=== PATIENT | female | born 1990 | race Caucasian/White ===

== ENCOUNTER 2016-09-04 12:20 | Emergency (ER) | payer MEDICAID ==
[~2016-09-04] VITALS: Ht 160 cm; Wt 77.0 kg
[~2016-09-04 12:20] MED LIST: ALBU8.5H3 INH; AZIT250T94 PO; BENZ100C70 PO; D-ME473S18 PO; DOXY100T20 PO; PRED20TA PO; PRED50TA PO; PREN1TAB33 BU; [UNRECOGNIZED DRUG - CODE] IJ
[2016-09-04 12:47] VITALS: Ht 160 cm; Wt 77.0 kg
[2016-09-04] MEDS ORDERED: METHYLPREDNISOLONE 125 MG INJ IM STA (16:09)
[2016-09-04] MEDS ORDERED: ALBUTEROL 0.5% (NEB) 2.5 MG/0.5 ML AMP INH STA ×2 (16:09→18:14)
--- NOTE | 2016-09-04 16:49 | RADRPT ---
PROCEDURE: XR Chest. CLINICAL INDICATION: Asthma exacerbation. TECHNIQUE: Single frontal view of the chest was obtained COMPARISON: No. FINDINGS: The heart is normal in size. The left-sided aorta is normal. The trachea and hilar structures are normal. The lungs are clear. The diaphragms are flattened. No pleural effusion is noted. The bon y elements are normal. No changes noted compared to the prior study. No acute infiltrate is identif ied. IMPRESSION: 1. Stable chest x-ray with no evidence of active cardiopulmonary disease. 2. Mildly hyperinflation which is unchanged. RPTAT:AAJJ Physician Renetta Date Time Electronically viewed and signed by Pritesh Chanel Physician on 09/04/2016 16:49 KRISTAL/
[2016-09-04] MEDS ORDERED: PRED20TA PO (16:50)
[2016-09-04] MEDS ORDERED: ALBU8.5H3 INH (16:51)
--- NOTE | 2016-09-04 16:59 | ERD ---
ER Documentation Chief Complaint Date/Time DATE: 09/04/16 TIME: 16:51 Chief Complaint asthma exacerabtion HPI Patient is a 26-year-old female with past medical history of asthma who presents to the emergency department with shortness of breathing and wheezing. She states that her symptoms started approximately 12 PM today. Patient states she tried taking her albuterol inhaler x1 with minimal relief of symptoms. She states that she's had a dry cough for 3 days. Patient also reports some rhinorrhea. Patient denies any fever, chills, ear pain, throat pain, nausea, vomiting, abdominal pain, loss of consciousness. No recent travel. No sick contacts. ROS All systems reviewed and are negative except as per history of present illness. Medications Home Meds Active Scripts Albuterol Sulfate* (Proair HFA*) 8.5 Gm Hfa.aer.ad, 2 PUFF INH Q4H Y for WHEEZING AND SOB, #1 INHALER Prov:SHERYL MCDERMOTT PA-C 09/04/16 Prednisone* (Prednisone*) 20 Mg Tab, 40 MG PO DAILY for 4 Days, TAB Prov:SHERYL MCDERMOTT PA-C 09/04/16 Dextromethorphan Hb-Promethazine Hcl (Promethazine DM Syrup) 473 Ml Syrup, 1.25 ML PO Q6H, #4 OZ Prov:SONG JONES PA-C 07/14/16 Benzonatate* (Tessalon Perle*) 100 Mg Capsule, 100 MG PO Q8H Y for COUGH for 14 Days, #14 CAP Prov:SONG JONES PA-C 07/14/16 Albuterol Sulfate* (Proair HFA*) 8.5 Gm Hfa.aer.ad, 2 PUFF INH Q4, #1 INHALER Prov:NEFTALY CASTELLON PA-C 07/02/16 Prednisone* (Prednisone*) 50 Mg Tablet, 50 MG PO DAILY, #5 TAB Prov:NEFTALY CASTELLON PA-C 07/02/16 Azithromycin* (Zithromax*) 250 Mg Tablet, 250 MG PO .ZPACK DIRECTED, #6 TAB TAKE 500 MG (2 TABS) THE FIRST DAY THEN 250 MG (1 TAB) DAYS 2-5 Prov:NEFTALY CASTELLON PA-C 07/02/16 Doxycycline Hyclate* (Doxycycline Hyclate*) 100 Mg Tablet.dr, 100 MG PO BID for 10 Days, TAB Prov:RICHARD DAVIS PA-C 06/22/16 Albuterol Sulfate* (Proair HFA*) 8.5 Gm Hfa.aer.ad, 2 PUFF INH Q4, #1 INHALER Prov:RICHARD DAVIS PA-C 06/22/16 Prednisone* (Prednisone*) 20 Mg Tab, 40 MG PO DAILY for 4 Days, TAB Prov:RICHARD DAVIS PA-C 06/22/16 Reported Medications Folic Acid* (Folic Acid* ()) 50 Mcg/Ml Soln, 50 MCG IJ DAILY 07/11/13 Vit/Fe Fumarate/Fa ( Tablet) 1 Tab Tablet, 1 TAB BU DAILY 07/11/13 Allergies Allergies: Coded Allergies: No Known Drug Allergies (Verified Allergy, Unknown, 07/02/16) PMhx/Soc History of Surgery: No Anesthesia Reaction: No Hx Neurological Disorder: No Hx Respiratory Disorders: Yes (ASTHMA, BRONCHITIS) Hx Cardiac Disorders: No Hx Psychiatric Problems: No Hx Miscellaneous Medical Probl: No Hx Alcohol Use: No Hx Substance Use: No Hx Tobacco Use: No FmHx Family History: No diabetes Physical Exam Vitals Vital Signs Date Time Temp Pulse Resp B/P Pulse Ox O2 Delivery O2 Flow Rate FiO2 09/04/16 18:59 97.7 122 20 122/73 98 09/04/16 18:20 110 20 92 21 09/04/16 16:33 79 20 95 21 09/04/16 12:47 97.7 112 20 125/73 95 Physical Exam GENERAL: Well-developed, well-nourished female. Appears in no acute respiratory distress. No abdominal retractions, no nasal flaring. HEAD: Normocephalic, atraumatic. No deformities or ecchymosis. EYE: Pupils equal, round, and reactive to light. EOMs intact. No conjunctival erythema. No scleral icterus. No eye discharge. ENT: External ear without any masses or tenderness. Auditory canals clear bilaterally. TM visualized bilaterally, non-erythematous, non-bulging. Nasal mucosa pink with no discharge. Oropharynx is pink without any tonsillar erythema or exudates. No uvula deviation. No kissing tonsils. NECK: Supple. No lymphadenopathy or thyromegaly. No meningismus. LUNG: Bilateral lobe wheezing auscultated. HEART: Regular rate and rhythm. No murmurs, rubs or gallops. BACK: No midline tenderness. EXTREMITIES: Equal pulses bilaterally. No peripheral clubbing, cyanosis or edema. No unilateral leg swelling. NEUROLOGIC: Alert and oriented to person, place and time. Moving all four extremities. 5/5 strength in all extremities. Normal speech. Steady gait. SKIN: Normal color. Warm and dry. No rashes or lesions. Results 24 hrs Current Medications Medications (Trade) Dose Ordered Sig/Angelo Route PRN Reason Start Time Stop Time Status Last Admin Dose Admin Albuterol (Proventil 0.5% (Neb)) 10 mg ONCE STAT INH 09/04/16 16:09 09/04/16 16:11 DC 09/04/16 16:32 Methylprednisolone Sodium Succinate (Solu-Medrol) 125 mg ONCE STAT IM 09/04/16 16:09 09/04/16 16:11 DC 09/04/16 16:15 Ipratropium [place] (Atrovent 0.02% (Neb)) 0.5 mg ONCE STAT NEB 09/04/16 18:14 09/04/16 18:16 DC 09/04/16 18:20 Albuterol (Proventil 0.5% (Neb)) 10 mg ONCE STAT INH 09/04/16 18:14 09/04/16 18:16 DC 09/04/16 18:20 Ipratropium [place] (Atrovent 0.02% (Neb)) 0.5 mg STK-MED ONCE .ROUTE 09/04/16 18:16 09/04/16 18:17 DC Procedures/MDM ED COURSE: The patient was stable throughout ED course. I kept the patient and/or family informed of laboratory and diagnostic imaging results throughout the ED course. DIAGNOSTIC IMAGING: Read by radiologist. DIAGNOSTIC IMAGING REPORT Patient: FITO GUERRIER : 1990 Age: 26 Sex: F MR #: [id number] DOS: 09/04/16 1609 Ordering MD: SHERYL MCDERMOTT PA-C Location: [facility] Room/Bed: PROCEDURE: XR Chest. CLINICAL INDICATION: Asthma exacerbation. TECHNIQUE: Single frontal view of the chest was obtained COMPARISON: No. FINDINGS: The heart is normal in size. The left-sided aorta is normal. The trachea and hilar structures are normal. The lungs are clear. The diaphragms are flattened. No pleural effusion is noted. The bony elements are normal. No changes noted compared to the prior study. No acute infiltrate is identified. IMPRESSION: 1. Stable chest x-ray with no evidence of active cardiopulmonary disease. 2. Mildly hyperinflation which is unchanged. RPTAT:AAJJ Pritesh Chanel Physician Date Time Electronically viewed and signed by Pritesh Chanel Physician on 09/04/2016 16:49 JM/ CC: SHERYL MCDERMOTT PA-C MEDICATIONS GIVEN: 2 Albuterol breathing treatment 1 hour. Solu-Medrol IM. Patient tolerated medication well with no adverse reactions. MEDICAL DECISION MAKING: This 26-year-old female who presents with SOB and wheezing x 5 hours. Vital signs were reviewed. Patient was afebrile. Patient was not hypoxic, O2 sat at initial presentation was 95%. ENT exam was normal. Exam revealed bilateral lobe wheezing. Patient was given a 1 hour albuterol breathing treatment here in the emergency department. Upon my repeat examination, wheezing was continued to be noted in bilateral lobes. I offered the patient another 1 hr breathing treatment, initially she declined. After speaking nursing staff prior to discharge, she stated that she wished to have another breathing treatment. Patient was given a second 1 hr breathing treatment of albuterol and ipratropium. Upon my 2nd reexamination, the patient's O2 sat was noted to be 98% . She reported feeling much better and wished to go home. Breaths were noted to be improved. Chest X-ray was unremarkable. Given these findings, the patients presentation is most consistent with acute asthma exacerbation likely of viral etiology. I have a much lower clinical concern for bacterial infections including pneumonia, meningitis, sinusitis, otitis externa, acute otitis media, strep pharyngitis, epiglottitis or peritonsillar abscess. PRESCRIPTIONS: Prednisone, albuterol inhaler DISCHARGE: At this time, patient is stable for discharge and outpatient management. Supportive therapies such as OTC throat lozenges, salt water gurgles, popsicles and jello discussed. I have instructed the patient to follow-up with his/her primary care physician in 1-2 days. I have instructed the patient to promptly return to the ER for any new or worsening symptoms including increased pain, swelling, fever, nausea, vomiting, weakness, difficulty breathing or LOC. The patient and/or family expressed understanding of and agreement with this plan. All questions were answered. Home care instructions were provided. Departure Diagnosis: Primary Impression: Asthma with acute exacerbation Asthma severity: unspecified severity Qualified Code: J45.901 - Asthma with acute exacerbation, unspecified asthma severity Condition: Stable Patient Instructions: Asthma, Acute (Adult) Referrals: [facility] YOU HAVE RECEIVED A MEDICAL SCREENING EXAM AND THE RESULTS INDICATE THAT YOU DO NOT HAVE A CONDITION THAT REQUIRES URGENT TREATMENT IN THE EMERGENCY DEPARTMENT. FURTHER EVALUATION AND TREATMENT OF YOUR CONDITION CAN WAIT UNTIL YOU ARE SEEN IN YOUR DOCTORS OFFICE WITHIN THE NEXT 1-2 DAYS. IT IS YOUR RESPONSIBILITY TO MAKE AN APPOINTMENT FOR [facility]. IF YOU HAVE A PRIMARY DOCTOR --you should call your primary doctor and schedule an appointment IF YOU DO NOT HAVE A PRIMARY DOCTOR YOU CAN CALL OUR PHYSICIAN REFERRAL HOTLINE AT IF YOU CAN NOT AFFORD TO SEE A PHYSICIAN YOU CAN CHOSE FROM THE FOLLOWING [facility] [address] [facility]. [facility] [address] [facility]. [facility] [address] [facility]. [facility] [address] [facility] [facility] [address] [facility]. [facility]. [address] [facility]. [facility] YOU HAVE RECEIVED A MEDICAL SCREENING EXAM AND THE RESULTS INDICATE THAT YOU DO NOT HAVE A CONDITION THAT REQUIRES URGENT TREATMENT IN THE EMERGENCY DEPARTMENT. FURTHER EVALUATION AND TREATMENT OF YOUR CONDITION CAN WAIT UNTIL YOU ARE SEEN IN YOUR DOCTORS OFFICE WITHIN THE NEXT 1-2 DAYS. IT IS YOUR RESPONSIBILITY TO MAKE AN APPOINTMENT FOR [facility]. IF YOU HAVE A PRIMARY DOCTOR --you should call your primary doctor and schedule and appointment IF YOU DO NOT HAVE A PRIMARY DOCTOR YOU CAN CALL OUR PHYSICIAN REFERRAL HOTLINE AT . IF YOU CAN NOT AFFORD TO SEE A PHYSICIAN YOU CAN CHOSE FROM THE FOLLOWING [facility]: [facility] [address] [place] [address] [facility] [address] [place], [place] [id number] [place] [address] [address] [place] [address] Additional Instructions: Use albuterol inhaler as needed. Call your primary care doctor TOMORROW for an appointment during the next 1-2 days.See the doctor sooner or return here if your condition worsens before your appointment time. SHERYL MCDERMOTT PA-C Sep 04, 2016 16:59
[2016-09-04] MEDS ORDERED: IPRATROPIUM (NEB) 0.5 MG/2.5 ML AMP NEB STA (18:14)
[2016-09-04] MEDS ORDERED: IPRATROPIUM (NEB) 0.5 MG/2.5 ML AMP ONE (18:16)
[2016-09-04 18:59] VITALS: BP 122/73; PULSE 122; RESP 20; TEMP 97.7
== END 2016-09-04 19:01 | disposition home or self-care (01) ==
LOC: FTE 12:20
DX: J45.901 Unspecified asthma with (acute) exacerbation (principal)
CPT/HCPCS: 71010; 94644; 94645; J2930; Z7502; Z7610

== ENCOUNTER 2017-01-01 01:07 | Emergency (ER) | payer MEDICAID ==
[~2017-01-01] VITALS: Ht 160 cm; Wt 57.0 kg
[2017-01-01 01:12] VITALS: Ht 160 cm; Wt 57.0 kg
[2017-01-01] MEDS ORDERED: ALBUTEROL 0.083% (NEB) 2.5 MG/3 ML AMP HHN STA (02:43)
[2017-01-01] MEDS ORDERED: IPRATROPIUM (NEB) 0.5 MG/2.5 ML AMP HHN ONE (03:00)
--- NOTE | 2017-01-01 04:23 | ERA ---
ER Documentation Chief Complaint Date/Time DATE: 01/01/17 TIME: 04:23 Chief Complaint DIFFICULTY BREATHING, SHORTNESS OF BREATH, HX OF ASTHMA, 20 WKS HPI This is a 26-year-old female in her third trimester presenting for shortness of breath. Onset was 4 hours ago and has been worsening. Patient has a history of asthma. Patient states that this feels just like asthma attacks that she has had previously. Patient does not have an albuterol inhaler as she has run out recently. Patient denies any abdominal pain, fever, bleeding, discharge, dysphasia, change in voice or drooling. Patient has not taken any medications to relieve the symptoms. Patient has no other complaints and no other significant medical history. ROS All systems reviewed and are negative except as per history of present illness. Medications Home Meds Active Scripts Albuterol Sulfate* (Albuterol Sulfate* Neb) 0.083%-3 Ml Neb, 2.5 MG NEB Q4 Y for SHORTNESS OF BREATH, #30 EA Prov:NANCY HUERTAS PA-C 01/01/17 Albuterol Sulfate* (Proair HFA*) 8.5 Gm Hfa.aer.ad, 2 PUFF INH Q4H Y for WHEEZING AND SOB, #1 INHALER Prov:SHERYL MCDERMOTT PA-C 09/04/16 Prednisone* (Prednisone*) 20 Mg Tab, 40 MG PO DAILY for 4 Days, TAB Prov:SHERYL MCDERMOTT PA-C 09/04/16 Dextromethorphan Hb-Promethazine Hcl (Promethazine DM Syrup) 473 Ml Syrup, 1.25 ML PO Q6H, #4 OZ Prov:SONG JONES PA-C 07/14/16 Benzonatate* (Tessalon Perle*) 100 Mg Capsule, 100 MG PO Q8H Y for COUGH for 14 Days, #14 CAP Prov:SONG JONES PA-C 07/14/16 Albuterol Sulfate* (Proair HFA*) 8.5 Gm Hfa.aer.ad, 2 PUFF INH Q4, #1 INHALER Prov:NEFTALY CASTELLON PA-C 07/02/16 Prednisone* (Prednisone*) 50 Mg Tablet, 50 MG PO DAILY, #5 TAB Prov:NEFTALY CASTELLON PA-C 07/02/16 Azithromycin* (Zithromax*) 250 Mg Tablet, 250 MG PO .GIULIANA DIRECTED, #6 TAB TAKE 500 MG (2 TABS) THE FIRST DAY THEN 250 MG (1 TAB) DAYS 2-5 Prov:NEFTALY CASTELLON PA-C 07/02/16 Doxycycline Hyclate* (Doxycycline Hyclate*) 100 Mg Tablet.dr, 100 MG PO BID for 10 Days, TAB Prov:RICHARD DAVIS PA-C 06/22/16 Albuterol Sulfate* (Proair HFA*) 8.5 Gm Hfa.aer.ad, 2 PUFF INH Q4, #1 INHALER Prov:IRCHARD DAVIS PA-C 06/22/16 Prednisone* (Prednisone*) 20 Mg Tab, 40 MG PO DAILY for 4 Days, TAB Prov:RICHARD DAVIS PA-C 06/22/16 Reported Medications Folic Acid* (Folic Acid* ()) 50 Mcg/Ml Soln, 50 MCG IJ DAILY 07/11/13 Vit/Fe Fumarate/Fa ( Tablet) 1 Tab Tablet, 1 TAB BU DAILY 07/11/13 Allergies Allergies: Coded Allergies: No Known Drug Allergies (Verified Allergy, Unknown, 07/02/16) PMhx/Soc History of Surgery: No Anesthesia Reaction: No Hx Neurological Disorder: No Hx Respiratory Disorders: Yes (asthma) Hx Cardiac Disorders: No Hx Psychiatric Problems: No Hx Miscellaneous Medical Probl: No Hx Alcohol Use: No Hx Substance Use: No Hx Tobacco Use: No Smoking Status: Never smoker Physical Exam Vitals Vital Signs Date Time Temp Pulse Resp B/P Pulse Ox O2 Delivery O2 Flow Rate FiO2 01/01/17 04:24 109 20 118/81 97 Room Air 01/01/17 02:54 110 28 97 21 01/01/17 01:12 97.8 86 17 131/88 97 Physical Exam Const: Well-appearing otherwise healthy 26-year-old female who is . No acute distress. Head: Atraumatic Eyes: Normal Conjunctiva ENT: Normal External Ears, Nose and Mouth. Neck: Full range of motion..~ No meningismus. Resp: Crackles in all lung mullen bilaterally louder in the middle lobes. No tripoding/drooling/dyspnea. Cardio: Regular rate and rhythm, no murmurs Abd: Soft, non tender, non distended. Normal bowel sounds Skin: No petechiae or rashes Back: No midline or flank tenderness Ext: No cyanosis, or edema Neur: Awake and alert Psych: Normal Mood and Affect Results 24 hrs Current Medications Medications (Trade) Dose Ordered Sig/Angelo Route PRN Reason Start Time Stop Time Status Last Admin Dose Admin Albuterol (Proventil 0.083% (Neb)) 5 mg ONCE STAT N 01/01/17 02:43 01/01/17 02:45 DC 01/01/17 02:54 Ipratropium [place] (Atrovent 0.02% (Neb)) 0.5 mg ONCE ONCE HHN 01/01/17 03:00 01/01/17 03:01 DC 01/01/17 02:54 Procedures/MDM Otherwise healthy 26-year-old female with history of asthma presenting for asthma exacerbation. Patient has had these symptoms before and states that this feels the same. RT was consulted. Breathing treatment with albuterol, ipratropium and oxygen was given. Upon reevaluation the patient's symptoms have improved and pulmonary exam is clear. Patient states that she feels better. Patient's vitals are stable. Patient's current condition is appropriate for discharge. Patient will be given discharge instructions with return precautions. Patient will also be prescribed albuterol since she has recently run out. Departure Diagnosis: Primary Impression: Asthma exacerbation Condition: Stable Additional Instructions: Follow up with your PCP/OB-CURRICULUM DEVELOPMENT SPECIALIST within the next 1-3 days for a more thorough evaluation and a possible referral to a specialist. Return the the emergency department immediately if symptoms worsen or change. If you have any questions regarding medications, ask your pharmacist or us before you leave. If any adverse reactions occur while taking your medications, discontinue the treatment and return to the emergency department immediately. Take your medications as directed. NANCY HUERTAS PA-C Jan 01, 2017 04:23
[2017-01-01 04:24] VITALS: BP 118/81; PULSE 109; RESP 20
[2017-01-01] MEDS ORDERED: ALBU2.5V3 NEB (04:24)
== END 2017-01-01 04:30 | disposition home or self-care (01) ==
LOC: FTE 01:07
DX: O99.512 Diseases of the respiratory system complicating pregnancy, second trimester (principal); R06.02 Shortness of breath; J45.901 Unspecified asthma with (acute) exacerbation; Z3A.20 20 weeks gestation of pregnancy
CPT/HCPCS: 94664; Z7502; Z7610

== ENCOUNTER 2017-05-06 10:28 | Inpatient (IN) | payer MEDICAID ==
[~2017-05-06] VITALS: Ht 154.9 cm; Wt 63.6 kg
[~2017-05-06 10:28] MED LIST changes: +ALBU2.5V3 NEB
[2017-05-06] MEDS ORDERED: LIDOCAINE 1% (MPF) 30 ML INJ ONE (10:32)
[2017-05-06] MEDS ORDERED: OXYTOCIN 30 UNITS/LR 500 ML IV ONE (10:32)
[2017-05-06] MEDS ORDERED: LACTATED RINGER'S 1,000 ML IV SCH (10:41)
[2017-05-06 10:52] LABS: BASOPHIL # 0.1 10^3/ul (0.0-0.1); BASOPHILS % 0.4 % (0.0-2.0); EOSINOPHILS # 0.4 10^3/ul (0.0-0.5); EOSINOPHILS % 3.1 % (0.0-7.0); HEMATOCRIT 42.6 % (37.0-47.0); HEMOGLOBIN 14.4 g/dl (12.0-16.0); LYMPHOCYTES # 2.1 10^3/ul (0.8-2.9); LYMPHOCYTES % 17.7 % (15.0-51.0); MEAN CORPUSCULAR HEMOGLOBIN 32.2 pg (29.0-33.0); MEAN CORPUSCULAR HGB CONC 33.8 g/dl (32.0-37.0); MEAN CORPUSCULAR VOLUME 95.3 fl (82.0-101.0); MEAN PLATELET VOLUME 11.2 fl (7.4-10.4); MONOCYTE # 0.5 10^3/ul (0.3-0.9); MONOCYTES % 4.2 % (0.0-11.0); NEUTROPHIL # 8.7 10^3/ul (1.6-7.5); NEUTROPHILS % 74.1 % (39.0-77.0); PLATELET COUNT 239 10^3/UL (140-415); RED BLOOD COUNT 4.47 10^6/ul (4.20-5.40); WHITE BLOOD COUNT 11.7 10^3/ul (4.8-10.8)
[2017-05-06] MEDS ORDERED: LIDOCAINE 1% (MPF) 30 ML INJ INJ PRN (11:00)
[2017-05-06] MEDS ORDERED: METHYLERGONOVINE 0.2 MG INJ IM PRN ×2 (11:00→12:30)
[2017-05-06] MEDS ORDERED: OXYTOCIN 30 UNITS/LR 500 ML IV PRN ×2 (11:00→12:30)
[2017-05-06] MEDS ORDERED: CARBOPROST 250 MCG INJ IM PRN ×2 (11:00→12:30)
[2017-05-06] MEDS ORDERED: MISOPROSTOL 200 MCG TAB PR PRN ×2 (11:00→12:30)
[2017-05-06] MEDS ORDERED: AMPICILLIN 2 GM/NS (PMX) 100 ML IV ONE (11:00)
[2017-05-06] MEDS ORDERED: LACTATED RINGER'S 1,000 ML IV PRN (11:00)
[2017-05-06] MEDS ORDERED: IBUPROFEN 600 MG TAB PO PRN (11:00)
[2017-05-06] MEDS ORDERED: OXYTOCIN 30 UNITS/LR 500 ML IV SCH (11:00)
[2017-05-06 11:09] LABS: INR 0.93; PROTIME 12.5 Sec (12.2-14.2)
[2017-05-06 11:10] LABS: PARTIAL THROMBOPLASTIN TIME 26.9 Sec (25.0-35.0)
[2017-05-06 11:41] VITALS: Ht 154.9 cm; Wt 63.6 kg
[2017-05-06 11:44] VITALS: BP 140/80; PULSE 104; RESP 18
--- NOTE | 2017-05-06 11:48 | RADRPT ---
PROCEDURE: US Limited OB. CLINICAL INDICATION: Macrosomia. TECHNIQUE: Multiple sonographic images of the pelvis were obtained. Transabdominal imaging only w as performed. COMPARISON: None. FINDINGS: Cardiac activity is present with 148 beats per minute. Presentation is cephalic. Measurements were made in order to determine age. The results are as follows: BPD = 36 w 1 d HC = 34 w 2 d AC = 34 w 5 d FL = 33 w 3 d Estimated weight is 2427 g, 5.9%. The placenta is fundal, with no evidence of previa. IMPRESSION: 1. Single, live intrauterine with estimated age of 34 weeks, 5 days. 2. Estimated weight: 2427 g, 5.9 %. RPTAT: EE .Fernando Christiansen MD, Date Time Electronically viewed and signed by .Fernando Christiansen MD, on 05/06/2017 11:48 .C/
[2017-05-06] MEDS ORDERED: MINERAL OIL LIGHT 10 ML VIAL TOP ONE (12:00)
[2017-05-06] MEDS: OXYTOCIN 30 UNITS/LR 500 ML IV SCH ×2 (12:19→12:21)
--- NOTE | 2017-05-06 12:23 | LDN ---
Date/Time of Note Date/Time of Note DATE: 05/06/17 TIME: 12:15 Delivery Summary Weeks of Gestation at term Placenta Delivered: Spontaneously Meconium: none Anesthesia type: None Sponge & Needle done & correct: Yes All needle counts correct: Yes Any foreign bodies felt in the: No Problems: Delivery Information Sex Infant Sex: female Apgars 1 Minute: 8 5 Minute: 9 Suctioning Nose & mouth suctioned at trevor: No Delee suction performed: No Umbilical Cord Umbilical cord with: 3 Vessels Cord presentations: no nuchal cord Cord Blood was obtained: Yes NANCY MULLER MD May 06, 2017 12:23
[2017-05-06] MEDS: LACTATED RINGER'S 1,000 ML IV* SCH ×2 (12:26→20:26)
[2017-05-06] MEDS ORDERED: OXYCODONE/ASPIRIN (4.88/325) TAB PO PRN (12:30)
[2017-05-06] MEDS ORDERED: WITCH HAZEL/GLYCERIN PAD PR PRN (12:30)
[2017-05-06] MEDS ORDERED: LANOLIN 7 GM TUBE TOP PRN (12:30)
[2017-05-06] MEDS ORDERED: ONDANSETRON 4 MG INJ IV PRN (12:30)
[2017-05-06] MEDS ORDERED: SENNA/DOCUSATE NA (8.6MG/50MG) TAB PO PRN (12:30)
[2017-05-06] MEDS ORDERED: BENZOCAINE 20% 56 ML SPRAY TOP PRN (12:30)
[2017-05-06] MEDS ORDERED: DIBUCAINE 1% 30 GM OINT PR PRN (12:30)
[2017-05-06 14:15] VITALS: BP 124/58; PULSE 82; RESP 16
[2017-05-06] MEDS ORDERED: AMPICILLIN 1 GM/NS (PMX) 50 ML IV SCH (15:00)
[2017-05-06 15:15] VITALS: BP 125/58; PULSE 88; RESP 20
[2017-05-06 16:57] VITALS: BP 128/69; PULSE 68; RESP 16
[2017-05-06] MEDS: OXYCODONE/ASPIRIN (4.88/325) TAB PO PRN (16:57)
[2017-05-06] MEDS: IBUPROFEN 600 MG TAB PO SCH (18:10)
[2017-05-06 19:40] VITALS: BP 133/68; PULSE 19; RESP 19
[2017-05-06] MEDS: MAGNESIUM HYDROXIDE 30ML CUP PO SCH (21:44)
[2017-05-06] MEDS: SENNA/DOCUSATE NA (8.6MG/50MG) TAB PO SCH (21:44)
[2017-05-07 00:10] VITALS: BP 126/74; PULSE 76; RESP 18
[2017-05-07] MEDS: IBUPROFEN 600 MG TAB PO SCH ×5 (00:30→23:39)
[2017-05-07 04:25] VITALS: BP 112/66; PULSE 77; RESP 17
[2017-05-07 08:00] VITALS: BP 109/53; PULSE 75; RESP 16
[2017-05-07 08:41] LABS: BASOPHIL # 0.1 10^3/ul (0.0-0.1); BASOPHILS % 0.5 % (0.0-2.0); EOSINOPHILS # 0.7 10^3/ul (0.0-0.5); EOSINOPHILS % 4.7 % (0.0-7.0); HEMATOCRIT 37.8 % (37.0-47.0); HEMOGLOBIN 12.7 g/dl (12.0-16.0); LYMPHOCYTES # 2.3 10^3/ul (0.8-2.9); LYMPHOCYTES % 16.9 % (15.0-51.0); MEAN CORPUSCULAR HEMOGLOBIN 31.8 pg (29.0-33.0); MEAN CORPUSCULAR HGB CONC 33.6 g/dl (32.0-37.0); MEAN CORPUSCULAR VOLUME 94.5 fl (82.0-101.0); MEAN PLATELET VOLUME 11.3 fl (7.4-10.4); MONOCYTE # 0.8 10^3/ul (0.3-0.9); MONOCYTES % 5.4 % (0.0-11.0); NEUTROPHIL # 9.9 10^3/ul (1.6-7.5); NEUTROPHILS % 71.9 % (39.0-77.0); PLATELET COUNT 204 10^3/UL (140-415); RED CELL DISTRIBUTION WIDTH 13.2 % (11.5-14.5); WHITE BLOOD COUNT 13.8 10^3/ul (4.8-10.8)
[2017-05-07] MEDS ORDERED: INFLUENZA VIRUS VACCINE 0.5 ML (DISPENSING) IM* ONE (09:00)
[2017-05-07] MEDS: SENNA/DOCUSATE NA (8.6MG/50MG) TAB PO SCH ×2 (09:15→21:31)
[2017-05-07] MEDS: MAGNESIUM HYDROXIDE 30ML CUP PO SCH ×2 (09:16→21:31)
[2017-05-07] MEDS: OXYCODONE/ASPIRIN (4.88/325) TAB PO PRN (10:14)
[2017-05-07 16:00] VITALS: BP 118/61; PULSE 66; RESP 16
--- NOTE | 2017-05-07 18:13 | PD.PPDC ---
EXTENSION COURSE COORDINATOR Discharge Instruction Condition Patient Condition: Good Diet Diet: Resume Regular Diet Activity/Restrictions Activity: Normal Activity May Shower Restrictions: No Exercising No Lifting No Driving No Sexual Activity Nothing in the Vagina No [place] No Tampons, douche Follow-up Follow-up with Physician: 3, Week/Weeks Return to clinic for TECHNOLOGY INTEGRATION SPECIALIST Instructions: Fever greater than 101 Chills Worsening abdominal pain Excessive Vaginal Bleeding More than 2 pads per hour Unable to tolerate diet OB Instructions: Breast Tenderness Depression Blurried Vision Headache Surgical Instructions: Incisional Drainage Incisional Redness NANCY MULLER MD May 07, 2017 18:13
--- NOTE | 2017-05-07 18:15 | DS ---
Date/Time of Note Date/Time of Note DATE: 05/07/17 TIME: 18:15 Obstetrical Discharge Record Final Diagnosis Final Diagnosis: Term delivered Vaginal Delivery Obstetrical Delivery: Spontaneous Condition on Discharge Physical Assessment Voiding: Yes Bowel Movement: Yes Breast: Soft, non-tender, Filling Fundus: Firm Calf Tenderness: No Patient Condition: Fair NANCY MULLER MD May 07, 2017 18:15
[2017-05-07 20:00] VITALS: BP 123/74; PULSE 73; RESP 20
--- NOTE | 2017-05-08 03:16 | HP ---
DATE OF ADMISSION: 05/06/2017 HISTORY OF PRESENT ILLNESS: Ms. Светлана Mejia is a 26-year-old 3, para 2, EDC 05/27/2017, in trauterine at term, admitted today in labor. She reports of contractions since earlier th is morning. She denies any vaginal bleeding or discharge. Her care took place at [facility] or [facility]. PAST MEDICAL HISTORY: Asthma. MEDICATIONS: vitamins. PAST SURGICAL HISTORY: None. OBSTETRIC HISTORY: x2 vaginal deliveries. GYNECOLOGIC HISTORY: 10, regular 3 to 4 days. Denies any sexually transmitted disease. Sexually a ctive with 1 partner. SOCIAL HISTORY: Denies any smoking, drugs or alcohol. FAMILY HISTORY: None. PREVIOUS SYSTEMS: All within normal except history of present illness. PHYSICAL EXAMINATION: HEENT: Within normal. LUNGS: CTA bilateral. CARDIOVASCULAR: S1, S2, regular rhythm. ABDOMEN: Gravid, nontender. Negative CVA bilateral. EXTREMITIES: Negative edema. No calf tenderness. PELVIC: Vaginal exam, anterior lip 100% effaced, 0 station. heart tracing category 1, toco r egular contractions. ASSESSMENT: Intrauterine at term, in labor. PLAN: Expected vaginal delivery. Dictated By: NANCY ROTH/MANUEL Conf#: [id number] DID#: [id number]
[2017-05-08 04:54] VITALS: BP 110/60; PULSE 72; RESP 20
[2017-05-08] MEDS: IBUPROFEN 600 MG TAB PO SCH ×2 (05:10→12:02)
[2017-05-08 07:35] VITALS: BP 120/74; PULSE 77; RESP 20
[2017-05-08] MEDS: SENNA/DOCUSATE NA (8.6MG/50MG) TAB PO SCH (09:00)
[2017-05-08] MEDS: MAGNESIUM HYDROXIDE 30ML CUP PO SCH (09:15)
== END 2017-05-08 14:51 | disposition home or self-care (01) | DRG 775 ==
LOC: L-D 10:28 → PP1 14:02 → EDSTATUS 05-27 10:26
PROVIDERS: ADMIT Obstetrics & Gynecology; ATTEND Obstetrics & Gynecology
PROC: 10E0XZZ Delivery of Products of Conception, External Approach (ICD-10-PCS; principal; 2017-05-06)
DX: O99.52 Diseases of the respiratory system complicating childbirth (principal); Z37.0 Single live birth; Z3A.37 37 weeks gestation of pregnancy
CPT/HCPCS: 76815; 85025; 85610; 85730; 86592; 86900; 86901; 87340; 90686; A4310; J2590; J7120

== ENCOUNTER 2018-02-17 13:38 | Emergency (ER) | END 2018-02-17 16:12 | disposition left against medical advice (07) ==